=== PATIENT | female | born 1990 | race Hispanic/Latino ===

== ENCOUNTER 2017-09-27 05:44 | Emergency (ER) | payer OTHER ==
[2017-09-27 06:02] VITALS: TEMP 97.7
--- NOTE | 2017-09-27 06:31 | ED PDOC ---
HPI: Female Pain Time Seen by Provider: 09/27/17 05:48 Chief Complaint (Nursing): Female Genitourinary Chief Complaint (Provider): Vaginal bleeding & Abdominal pain History Per: Patient History/Exam Limitations: no limitations Onset/Duration Of Symptoms: Days (2 days ago) Current Symptoms Are (Timing): Still Present Additional Complaint(s): 27 y/o 6 week female, with no past medical history, presents to the ED complaining of vaginal bleeding and abdominal pain, onset of 2 days ago. Patient reports of the bleeding starting 2 days ago noted that it was bright red , but this morning she noticed some vaginal bleeding with clots, and experienced some pelvic pain. Of note, the patient has a of 2 and a para of 1. : 2 Para: 1 Past Medical History Reviewed: Historical Data, Nursing Documentation, Vital Signs Vital Signs: Last Vital Signs Temp 97.7 F 09/27/17 05:58 Pulse 74 09/27/17 05:58 Resp 15 09/27/17 05:58 BP 126/83 09/27/17 05:58 Pulse Ox 98 09/27/17 05:58 - Medical History PMH: No Chronic Diseases - Surgical History Surgical History: Tonsillectomy - Family History Family History: States: Unknown Family Hx - Living Arrangements Living Arrangements: With Family - Allergies Allergies/Adverse Reactions: Allergies Allergy/AdvReac Type Severity Reaction Status Date / Time No Known Allergies Allergy Verified 09/27/17 06:02 Review of Systems Gastrointestinal: Positive for: Abdominal Pain Genitourinary Female: Positive for: Vaginal Bleeding, Pelvic Pain Physical Exam - Reviewed Nursing Documentation Reviewed: Yes Vital Signs Reviewed: Yes - Physical Exam Appears: Positive for: Non-toxic, No Acute Distress Head Exam: Positive for: ATRAUMATIC, NORMAL INSPECTION, NORMOCEPHALIC Skin: Positive for: Normal Color, Warm, DRY Eye Exam: Positive for: EOMI, Normal appearance, PERRL ENT: Positive for: Normal ENT Inspection Neck: Positive for: Normal, Painless ROM Cardiovascular/Chest: Positive for: Regular Rate, Rhythm. Negative for: Murmur Respiratory: Positive for: CNT, Normal Breath Sounds Gastrointestinal/Abdominal: Positive for: Normal Exam, Soft. Negative for: Tenderness Back: Positive for: Normal Inspection Extremity: Positive for: Normal ROM. Negative for: Pedal Edema, Deformity Neurologic/Psych: Positive for: Alert, Oriented. Negative for: Motor/Sensory Deficits - Laboratory Results Result Diagrams: 09/27/17 06:25 - ECG O2 Sat by Pulse Oximetry: 98 (RA) Pulse Ox Interpretation: Normal Medical Decision Making Medical Decision Making: Time: --06:25 Impression: --27 y/o female with vaginal bleeding in setting of early Plan: --Labs --ED UDip --type and screen --ABO/RH Type --Beta-HCG, Quatitative --Urinalysis --heplock insertion --OB Transvaginal US --pelvis/transvag US Reassess -- Scribe Attestation: Documented by Azeem Green acting as a scribe for Yobani Hathaway MD. Provider Attestation: All medical record entries made by the Scribe were at my direction and personally dictated by me. I have reviewed the chart and agree that the record accurately reflects my personal performance of the history, physical exam, medical decision making, and the department course for this patient. I have also personally directed, reviewed, and agree with the discharge instructions and disposition. Disposition - Clinical Impression Clinical Impression: Abdominal pain in - Patient ED Disposition Is Patient to be Admitted: Transfer of Care - Disposition Disposition: Transfer of Care Disposition Time: 07:00 Condition: FAIR Instructions: Spontaneous Miscarriage (ED) Forms: [employer] (Guinean)
[2017-09-27 06:49] LABS: BASO % 0.4 % (0.0-2.0); EOS # 0.2 K/uL (0.0-0.7); EOS % 2.2 % (0.0-4.0); HEMATOCRIT 35.1 % (34.0-47.0); LYMPH # 2.6 K/uL (1.0-4.3); LYMPH % 26.6 % (20.0-40.0); MEAN CELL VOLUME 90.8 fl (81.0-99.0); MEAN CORPUSCULAR HEMOGLOBIN 30.2 pg (27.0-31.0); MEAN CORPUSCULAR HGB CONC 33.2 g/dL (33.0-37.0); MONO # 0.8 K/uL (0.0-0.8); MONO % 8.5 % (0.0-10.0); NEUT % 62.3 % (50.0-75.0); RED CELL DISTRIBUTION WIDTH 12.7 % (11.5-14.5); WHITE BLOOD COUNT 9.6 K/uL (4.8-10.8)
--- NOTE | 2017-09-27 07:23 | ED PDOC ---
- Laboratory Results Result Diagrams: 09/27/17 06:25 - ECG O2 Sat by Pulse Oximetry: 98 (RA) Pulse Ox Interpretation: Normal Medical Decision Making Medical Decision Making: Time: 07:00 --Patient signed out to me by Dr. Yobani Hathaway, pending ultrasound and reevaluation. Scribe Attestation: Documented by Soraya Ventura acting as a scribe for Nile Mcgee MD. Provider Attestation: All medical record entries made by the Scribe were at my direction and personally dictated by me. I have reviewed the chart and agree that the record accurately reflects my personal performance of the history, physical exam, medical decision making, and the department course for this patient. I have also personally directed, reviewed, and agree with the discharge instructions and disposition. Disposition - Clinical Impression Clinical Impression: Incomplete - POA Present On Arrival: None - Disposition Disposition: Routine/Home Disposition Time: 10:24 Condition: FAIR Instructions: Spontaneous Miscarriage (ED) Forms: [employer] (Angolan)
--- NOTE | 2017-09-27 10:38 | US ---
PROCEDURE: Pelvic ultrasound dated 09/27/2017. HISTORY: Vaginal bleeding in . COMPARISON: No prior study available for comparison TECHNIQUE: Transabdominal/transvaginal sonographic evaluation of the pelvis performed in standard fashion. No prior study available comparison. FINDINGS: The uterus is anteverted measuring approximately 8.6 x 3.6 x 4.1 cm. . Endometrial stripe measures 9 mm. No evidence of intrauterine gestation. There appears to be a small amount of endocervical fluid. Cervix measures approximately 5.5 cm and is closed. . No gross free fluid seen in the cul de sac. Right ovary measures approximately 3.3 x 1.7 x 3.4 cm. Right ovary exhibits arterial flow. No ovarian masses are identified. . No ovarian masses are identified Left ovary measures approximately 2.9 x 1.3 x 2.9 cm in the. Right ovary also exhibits arterial flow. There are no ovarian masses IMPRESSION: There is no evidence of intrauterine gestation and therefore the possibility of an ectopic cannot be excluded despite the fact that no masses are identified on this exam. Recommend followup serial serum beta HCG and serial pelvic ultrasound. There is a tiny amount of endocervical fluid seen nonspecific. .
[2017-09-27 11:27] VITALS: BP 126/67; PULSE 76; RESP 18
[2017-10-01 04:02] VITALS: O2SAT 98
== END 2017-09-27 11:27 | disposition home or self-care (01) ==
LOC: H.ER 05:44
DX: O03.4 Incomplete spontaneous abortion without complication (principal); O46.90 Antepartum hemorrhage, unspecified, unspecified trimester

== ENCOUNTER 2018-01-05 12:40 | Emergency (ER) | payer OTHER ==
[2018-01-05 12:46] VITALS: TEMP 98.1
[2018-01-05 13:06] VITALS: RESP 18; O2SAT 100
[2018-01-05] MEDS ORDERED: Sodium Chloride 0.9% 1,000 ML IV STA (13:09)
--- NOTE | 2018-01-05 13:13 | ED PDOC ---
HPI: SOB/CHF/COPD <Heather Flaherty - Last Filed: 01/05/18 15:07> <Clint Jiménez - Last Filed: 01/05/18 15:34> Time Seen by Provider: 01/05/18 12:55 Chief Complaint (Nursing): Shortness Of Breath Additional Complaint(s): 27yo F PMHx panic attacks and spontaneous (3 months ago) c/o SOB. daily panic attacks x2 weeks, acutely worse today 20 min ago a/w SOB. Episode today feels similar to prior attacks but worse 2/2 SOB. No inciting event/ stressor, working at home today. a/w numbness/tingling head/lips/fingertips. Has had similar episodes starting age 12 yo. Not seeing psych currently, tring CBD oil as remedy. Denies fever, chills, vomiting, chest pain, abd pain, diarrhea, dysuria, hematuria. Denies PMHx/FHx cardiac/lung disease. Denies smoking,drugs. Planning to FU psych tomorrow. Used xanax in the past with relief of symptoms. LMP 3 weeks ago. PCP: none (Heather Flaherty) Supervising Attending Note <Heather Flaherty - Last Filed: 01/05/18 15:07> - Supervising Attending Note The Documented history was done by the: Physician History Tutor The documented physical exam was done by the: Physician History Tutor The documented procedures were done by the: Physician History Tutor - Attestation: I have personally seen and examined this patient.: Yes I have fully participated in the care of the patient.: Yes I have reviewed all pertinent clinical information, including history, physical exam and plan: Yes <Clint Jiménez - Last Filed: 01/05/18 15:34> - Notes: Notes:: Dyspnea, numbness, feels panic attack. Similar multiple times; started at age 12. Has psych appt tomorrow. Not suicidal or homicidal. (Clint Jiménez) Past Medical History Reviewed: Historical Data, Nursing Documentation, Vital Signs - Surgical History Surgical History: Tonsillectomy - Family History Family History: States: Unknown Family Hx <Heather Flaherty - Last Filed: 01/05/18 15:07> Reviewed: Nursing Documentation, Vital Signs - Medical History PMH: Anxiety - Surgical History Surgical History: No Surg Hx <Clint Jiménez M - Last Filed: 01/05/18 15:34> Vital Signs: Last Vital Signs Temp 98.1 F 01/05/18 13:56 Pulse 82 01/05/18 13:56 Resp 18 01/05/18 13:56 BP 127/84 01/05/18 13:56 Pulse Ox 100 01/05/18 15:08 - Allergies Allergies/Adverse Reactions: Allergies Allergy/AdvReac Type Severity Reaction Status Date / Time No Known Allergies Allergy Verified 09/27/17 06:02 Review of Systems ROS Statement: Except As Marked, All Systems Reviewed And Found Negative Respiratory: Positive for: Shortness of Breath Neurological: Positive for: Numbness <Tu,Ting - Last Filed: 01/05/18 15:07> Physical Exam - Reviewed Nursing Documentation Reviewed: Yes Vital Signs Reviewed: Yes - Physical Exam Appears: Positive for: Uncomfortable Head Exam: Positive for: ATRAUMATIC, NORMAL INSPECTION Skin: Positive for: Warm, Dry Eye Exam: Positive for: Normal appearance ENT: Negative for: Pharyngeal Erythema, Tonsillar Exudate Neck: Positive for: Normal, Painless ROM, Supple Cardiovascular/Chest: Positive for: Regular Rate, Rhythm, Chest Non Tender Respiratory: Positive for: Normal Breath Sounds. Negative for: Decreased Breath Sounds Gastrointestinal/Abdominal: Positive for: Soft. Negative for: Tenderness Back: Positive for: Normal Inspection Extremity: Positive for: Normal ROM. Negative for: Tenderness, Pedal Edema Lymphatic: Positive for: Normal Exam. Negative for: Adenopathy Neurologic/Psych: Positive for: Alert, Oriented, Mood/Affect (anxious) <Tu,Ting - Last Filed: 01/05/18 15:07> - Physical Exam Cardiovascular/Chest: Positive for: Regular Rate, Rhythm, Chest Non Tender Respiratory: Positive for: Normal Breath Sounds <Clint Jiménez M - Last Filed: 01/05/18 15:34> - Laboratory Results Result Diagrams: 01/05/18 13:30 01/05/18 13:30 - ECG O2 Sat by Pulse Oximetry: 100 <Tu,Ting - Last Filed: 01/05/18 15:07> - Laboratory Results Result Diagrams: 01/05/18 13:30 01/05/18 13:30 Interpretation Of Abn Labs: no acute - ECG Pulse Ox Interpretation: Normal - Radiology X-Ray: Read By Radiologist X-Ray Interpretation: No Acute Disease <JiménezClint - Last Filed: 01/05/18 15:34> - Progress ED Course And Treament: 1520: Stable. AAOx3. Pain free. EKG nonspecific, not in infarcting pattern. EKG repeat: NSR. No st/t changes. (Clint Jiménez) Medical Decision Making <ReynoldHeather - Last Filed: 01/05/18 15:07> <Clint Jiménez - Last Filed: 01/05/18 15:34> Medical Decision Makin DDx anxiety, panic attack, NC EKG CXR CBC, CMP, troponin ativan 0.5mg IV x1 u dip, urine preg Reassessment 1415 neg urine preg CBC WNL, no anemia CMP mild hypoKalemia, hypercalcemia troponin neg CXR no consolidations crisis eval 1505 crisis eval completed, dx anxiety per dr. easley pt feeling better, sitting comfortably HR in 80s d/c home, pt for FU Psych tomorrow (Heather Flaherty) Disposition <ReynoldHeather - Last Filed: 01/05/18 15:07> - Patient ED Disposition Is Patient to be Admitted: No Counseled Patient/Family Regarding: Studies Performed, Diagnosis, Need For Followup - Disposition Disposition: Routine/Home Disposition Time: 15:33 <JiménezClint M - Last Filed: 01/05/18 15:34> - Clinical Impression Clinical Impression: Anxiety - Disposition Referrals: [facility] [Outside] - 01/06/18 Condition: STABLE Additional Instructions: Return if not better in 3 days. Instructions: Anxiety, Adult (DC) Forms: [employer] (Persian), [facility] ED School/Work Excuse
[2018-01-05 13:38] LABS: BASO % 0.6 % (0.0-2.0); EOS # 0.1 K/uL (0.0-0.7); EOS % 1.7 % (0.0-4.0); HEMOGLOBIN 12.7 g/dL (12.0-16.0); LYMPH # 2.9 K/uL (1.0-4.3); LYMPH % 38.5 % (20.0-40.0); MEAN CELL VOLUME 89.5 fl (81.0-99.0); MEAN CORPUSCULAR HEMOGLOBIN 31.1 pg (27.0-31.0); MEAN CORPUSCULAR HGB CONC 34.8 g/dL (33.0-37.0); MEAN PLATELET VOLUME 8.1 fl (7.2-11.7); MONO # 0.7 K/uL (0.0-0.8); MONO % 9.5 % (0.0-10.0); NEUT # 3.8 K/uL (1.8-7.0); NEUT % 49.7 % (50.0-75.0); NRBC % 0.1 % (0.0-0.0); RBC 4.1 Mil/uL (3.80-5.20); RED CELL DISTRIBUTION WIDTH 13.1 % (11.5-14.5); WHITE BLOOD COUNT 7.7 K/uL (4.8-10.8)
[2018-01-05 13:54] LABS: ALB/GLOB RATIO 1.5 (1.0-2.1); ALBUMIN 4.7 g/dL (3.5-5.0); ALT/SGPT 26 U/L (9-52); AST/SGOT 19 U/L (14-36); BLOOD UREA NITROGEN 10 mg/dl (7-17); CALCIUM 10.3 mg/dL (8.4-10.2); GFR AFRICAN-AMERICAN > 60; GFR NON-AFRICAN AMERICAN > 60
[2018-01-05 13:57] VITALS: BP 127/84; PULSE 82
--- NOTE | 2018-01-05 14:10 | RAD ---
HISTORY: dyspnea COMPARISON: No prior. FINDINGS: LUNGS: No active pulmonary disease. PLEURA: No significant pleural effusion identified, no pneumothorax apparent. CARDIOVASCULAR: Normal. OSSEOUS STRUCTURES: No significant abnormalities. VISUALIZED UPPER ABDOMEN: Normal. OTHER FINDINGS: None. IMPRESSION: No active disease.
[2018-01-05 14:54] LABS: SQUAMOUS EPITHIAL 7 /hpf (0-5); URINE BACTERIA OCC (<OCC); URINE BILIRUBIN NEGATIVE (NEGATIVE); URINE BLOOD SMALL (NEGATIVE); URINE CLARITY CLOUDY (Clear); URINE COLOR STRAW (YELLOW); URINE GLUCOSE (UA) NEG (Normal); URINE LEUKOCYTE ESTERASE LARGE Leu/uL (Negative); URINE PROTEIN NEGATIVE (NEGATIVE); URINE UROBILINOGEN 0.2-1.0 mg/dL (0.2-1.0)
--- NOTE | 2018-01-05 15:13 | CARD ---
APPROVED REPORT EKG Measurement Heart [id number] [place] [id number] [id number] <Conclusion> Sinus tachycardia Possible Left atrial enlargement Nonspecific ST and T wave abnormality Abnormal ECG
--- NOTE | 2018-01-05 15:21 | CARD ---
APPROVED REPORT EKG Measurement Heart [id number] [place] 156P-8 [id number] <Conclusion> Normal sinus rhythm ST & T wave abnormality, consider anterior ischemia Abnormal ECG
== END 2018-01-05 15:55 | disposition home or self-care (01) ==
LOC: H.ER 12:40
DX: F41.9 Anxiety disorder, unspecified (principal)
CPT/HCPCS: 71045; 80053; 81003; 81025; 84484; 85025; 93005; 96374; 99284; J2060; J7040

== ENCOUNTER 2018-03-11 09:49 | Emergency (ER) | payer OTHER ==
[2018-03-11 09:52] VITALS: BP 120/73; PULSE 68; TEMP 97; O2SAT 100
[2018-03-11 09:53] VITALS: BMI 24.3
[2018-03-11] MEDS ORDERED: Sodium Chloride 0.9% 1,000 ML IV STA ×2 (10:32→11:53)
[2018-03-11] MEDS ORDERED: Tdap Vaccine 0.5 ml Vial (10-64 yrs) IM ONE ×2 (10:35→10:44)
--- NOTE | 2018-03-11 10:35 | ED PDOC ---
Syncope/Near Syncope/Dizziness Time Seen by Provider: 03/11/18 10:17 Chief Complaint (Nursing): Syncope Chief Complaint (Provider): syncope History Per: Patient (28 y/o female approx 8 weeks gestation here with syncopal episode today. Patient states she was walking dog when she felt nauseous and then light headed and subsequent syncopal episode. Believes she landed on right elbow and then struck head. States she has had mild temporal/ frontal headache x few days. Has been nauseous but feels she has been drinking enough. Notes h/o anxiety on zoloft and h/o tension headaches. Denies any chest pain/abd pain/vaginal bleeding.) Past Medical History Reviewed: Historical Data, Nursing Documentation, Vital Signs Vital Signs: Last Vital Signs Temp 97 F L 03/11/18 09:51 Pulse 68 03/11/18 09:51 Resp BP 120/73 03/11/18 09:51 Pulse Ox 100 03/11/18 09:51 - Medical History PMH: Anxiety, Depression, HTN Denies: Diabetes, Hepatitis, HIV, Seizures, Sexually Transmitted Disease - Surgical History Surgical History: Tonsillectomy - Family History Family History: States: Unknown Family Hx - Home Medications Home Medications: Ambulatory Orders Medication Instructions Recorded Ondansetron ODT [Zofran ODT] 4 mg PO Q8 PRN #10 odt 03/11/18 - Allergies Allergies/Adverse Reactions: Allergies Allergy/AdvReac Type Severity Reaction Status Date / Time No Known Allergies Allergy Verified 03/11/18 10:00 Review of Systems ROS Statement: Except As Marked, All Systems Reviewed And Found Negative Physical Exam - Reviewed Nursing Documentation Reviewed: Yes Vital Signs Reviewed: Yes - Physical Exam Appears: Positive for: Well, Non-toxic, No Acute Distress Head Exam: Positive for: ATRAUMATIC, NORMAL INSPECTION, NORMOCEPHALIC Skin: Positive for: Normal Color, Warm, DRY Eye Exam: Positive for: EOMI, Normal appearance, PERRL ENT: Positive for: Normal ENT Inspection Neck: Positive for: Normal, Painless ROM Cardiovascular/Chest: Positive for: Regular Rate, Rhythm Respiratory: Positive for: CNT, Normal Breath Sounds Gastrointestinal/Abdominal: Positive for: Normal Exam, Soft Back: Positive for: Normal Inspection Extremity: Positive for: Normal ROM, Other (abrasion right elbow.) Neurologic/Psych: Positive for: Alert, Oriented - Laboratory Results Result Diagrams: 03/11/18 11:29 03/11/18 11:29 - ECG ECG Rhythm: Positive for: Sinus Bradycardia (SINUS BRADYCARDIA 57BPM; NO ECTOPY NO ACUTE CHANGES) O2 Sat by Pulse Oximetry: 100 - Progress ED Course And Treament: Orthostatics done: Patient is not orthostatic by bp or pulse NS 2 liters with improvement of symptoms. Advised f/u with PMD for further evaluation Disposition - Clinical Impression Clinical Impression: Syncope - Patient ED Disposition Is Patient to be Admitted: No - Disposition Disposition: Routine/Home Disposition Time: 12:14 Condition: FAIR Prescriptions: Ondansetron ODT [Zofran ODT] 4 mg PO Q8 PRN #10 odt PRN Reason: Nausea/Vomiting Instructions: Syncope (Fainting) Forms: [employer] (Malian)
[2018-03-11 11:38] LABS: BASO % 0.4 % (0.0-2.0); EOS # 0.1 K/uL (0.0-0.7); EOS % 1.2 % (0.0-4.0); HEMOGLOBIN 11.9 g/dL (12.0-16.0); LYMPH # 1.7 K/uL (1.0-4.3); LYMPH % 18.2 % (20.0-40.0); MEAN CORPUSCULAR HEMOGLOBIN 31.4 pg (27.0-31.0); MEAN CORPUSCULAR HGB CONC 34.9 g/dL (33.0-37.0); MEAN PLATELET VOLUME 8.6 fl (7.2-11.7); MONO # 0.7 K/uL (0.0-0.8); MONO % 7.3 % (0.0-10.0); NEUT # 6.9 K/uL (1.8-7.0); NEUT % 72.9 % (50.0-75.0); RBC 3.77 Mil/uL (3.80-5.20); RED CELL DISTRIBUTION WIDTH 12.6 % (11.5-14.5); WHITE BLOOD COUNT 9.5 K/uL (4.8-10.8)
[2018-03-11 11:43] LABS: ALB/GLOB RATIO 1.4 (1.0-2.1); ALBUMIN 4.1 g/dL (3.5-5.0); ALT/SGPT 25 U/L (9-52); AST/SGOT 18 U/L (14-36); BLOOD UREA NITROGEN 4 mg/dl (7-17); CALCIUM 9.3 mg/dL (8.4-10.2); GFR AFRICAN-AMERICAN > 60; GFR NON-AFRICAN AMERICAN > 60
--- NOTE | 2018-03-11 11:53 | CARD ---
APPROVED REPORT EKG Measurement Heart [id number] [place] 182P-10 [id number] <Conclusion> Sinus bradycardia with sinus arrhythmia Otherwise normal ECG
== END 2018-03-11 13:46 | disposition home or self-care (01) ==
LOC: H.ER 09:49
DX: R55 Syncope and collapse (principal); Z33.1 Pregnant state, incidental; F32.9 Major depressive disorder, single episode, unspecified; F41.9 Anxiety disorder, unspecified; I10 Essential (primary) hypertension
CPT/HCPCS: 80053; 82948; 83735; 85025; 90471; 90715; 93005; 99285; J7040